=== PATIENT | female | born 1985 | race Caucasian/White ===

== ENCOUNTER → 2021-04-02 | Outpatient (CLI) | payer BC ==
--- NOTE | 2021-04-02 13:38 | KCIC ---
EXAM: MRI cervical spine without contrast CLINICAL INDICATION: Cervicalgia, skin disturbances. Neck pain since 12/16, no recent injury. Lt shou lder pain. COMPARISON: None available. TECHNIQUE: Multiplanar multisequence MR images of the cervical spine without contrast FINDINGS: The cervical spine is normal in alignment. No acute fracture. There is slight reversal of lordosis. M arrow signal is normal. There is mild disc height loss and desiccation throughout the cervical spine. The cervical cord is normal in signal and caliber. Cerebellar tonsils are slightly low-lying. At C2-C3: Trace disc bulge. No canal or foraminal narrowing. No facet arthrosis. At C3-C4: Trace disc bulge. No canal narrowing. Very mild right foraminal narrowing related to uncove rtebral joint proliferation. No facet arthrosis. At C4-C5: Trace broad-based disc bulge. No canal or foraminal narrowing. At C5-C6: Small broad-based disc bulge with a tiny central disc protrusion indenting the ventral CSF space. No canal or foraminal narrowing. At C6-C7: Small broad-based disc bulge with a tiny central disc protrusion indenting the ventral CSF space. No canal or foraminal narrowing. At C7-T1: Small disc bulge seen only on sagittal series, not included on axial series. No canal or f oraminal narrowing. IMPRESSION: Mild degenerative disc disease without canal or foraminal stenosis. Electronically signed by: Day Muir MD (04/02/2021 1:36 PM) [id number]
== END ==
LOC: KCIC MRI 08:28
PROVIDERS: ATTEND Family Medicine
DX: M50.33 Other cervical disc degeneration, cervicothoracic region (principal); M48.02 Spinal stenosis, cervical region; R20.9 Unspecified disturbances of skin sensation
CPT/HCPCS: 72141